=== PATIENT | female | born 1955 | race Caucasian/White ===

== ENCOUNTER 2017-08-23 21:21 | Emergency (ER) | payer BC ==
[~2017-08-23] VITALS: Ht 165.1 cm; Wt 72.6 kg
[~2017-08-23 21:21] MED LIST: ALLEGRA ALLERGY60 MG PO; ALLEGRA30 MG; ASPIR 8181 MG PO; CALCIUM 500 +1 EAC5 PO; CENTRUM SILVER1 EAC4 PO; CO Q-10100 MG PO; CYCLOBENZAPRINE5 MG PO; FISH OIL 1,001000 M2 PO; GLUCOSAMINE HC500 MG PO; IBUPROFEN 800800 M1 PO; NORETHINDRONE0.35 MG; VITAMIN B COMP1 EACH PO; VITAMIN D-32000 UNIT PO; ZOCOR; ZOCOR 10 MG TAB10 MG PO; ZOFRAN ODT4 MG PO; ZOLOFT; ZOLOFT25 MG PO; [UNRECOGNIZED DRUG - OTHER]
[2017-08-24 03:05] VITALS: BP 134/76
== END 2017-08-24 00:06 | disposition home or self-care (01) ==
LOC: ER 21:21
DX: S61.412A Laceration without foreign body of left hand, initial encounter (principal); F32.9 Major depressive disorder, single episode, unspecified; E78.00 Pure hypercholesterolemia, unspecified; W18.43XA Slipping, tripping and stumbling without falling due to stepping from one level to another, initial encounter; Y93.89 Activity, other specified; Y92.89 Other specified places as the place of occurrence of the external cause; Y99.8 Other external cause status